=== PATIENT | female | born 1995 | race Hispanic/Latino ===

== ENCOUNTER → 2023-05-25 | Outpatient (CLI) | payer OTHER ==
[2023-05-25 15:19] LABS: BASOPHILS % (AUTO) 0.3 % (0.0-5.0); EOSINOPHILS % (AUTO) 2.7 % (0.0-8.0); HEMATOCRIT 35.9 % (36-48); LYMPHOCYTES % (AUTO) 17.7 % (21.0-51.0); MEAN CORPUSCULAR HEMOGLOBIN 31.8 pg (27.0-33.0); MEAN CORPUSCULAR HGB CONC 33.7 g/dL (32.0-36.0); MEAN CORPUSCULAR VOLUME 94.5 fL (79-99); MONOCYTES % (AUTO) 7.1 % (3.0-13.0); NEUTROPHILS % (AUTO) 71.9 % (40.0-77.0); PLATELET COUNT (AUTO) 154 K/uL (130-400); RED CELL DISTRIBUTION WIDTH 15.1 % (11.0-15.5)
[2023-05-25 15:44] LABS: AMPHET/METH SCREEN,URINE NEGATIVE (NEGATIVE); BARBITURATE SCREEN, URINE NEGATIVE (NEGATIVE); BENZODIAZEPINES SCREEN,URINE NEGATIVE (NEGATIVE); CANNABINOID SCREEN,URINE NEGATIVE (NEGATIVE); COCAINE SCREEN,URINE NEGATIVE (NEGATIVE); OPIATE SCREEN,URINE NEGATIVE (NEGATIVE); PHENCYCLIDINE SCREEN,URINE NEGATIVE (NEGATIVE)
[2023-05-26 13:04] LABS: RAPID PLASMA REAGIN NONREACTIVE (NONREACTIVE)
== END | disposition home or self-care (01) ==
LOC: LAB 14:22
PROVIDERS: ATTEND Obstetrics & Gynecology
DX: Z36.9 Encounter for antenatal screening, unspecified (principal); Z3A.36 36 weeks gestation of pregnancy
CPT/HCPCS: 36415; 80305; 85025; 86592; 86701; 87088; 87390

== ENCOUNTER 2023-06-21 18:49 | Inpatient (IN) | payer OTHER ==
[~2023-06-21] VITALS: Ht 152.4 cm; Wt 71.7 kg
[2023-06-21] MEDS ORDERED: PROMETHAZINE HCL 25 MG/ML 1ML AMPULE IM PRN (20:30)
[2023-06-21] MEDS ORDERED: NALOXONE HCL 0.4 MG/1 ML ML IV PRN (20:30)
[2023-06-21] MEDS ORDERED: ROPIVACAINE 0.2% 100ML VIAL 100 ML EP PRN (20:30)
[2023-06-21] MEDS ORDERED: DINOPROSTONE 10 MG VAGINAL SUPP VG SCH (20:30)
[2023-06-21] MEDS ORDERED: EPHEDRINE SULFATE 50 MG/ML AMPULE IVP PRN (20:30)
[2023-06-21] MEDS ORDERED: MEPERIDINE-PF 50 MG/ML SYG IVP PRN (20:30)
[2023-06-21] MEDS ORDERED: LACTATED RINGERS 500 ML 500 ML IV PRN (20:30)
[2023-06-21 21:16] LABS: HEMATOCRIT 35.9 % (36-48); MEAN CORPUSCULAR HEMOGLOBIN 31.6 pg (27.0-33.0); MEAN CORPUSCULAR HGB CONC 33.4 g/dL (32.0-36.0); MEAN CORPUSCULAR VOLUME 94.5 fL (79-99); RED BLOOD CELL COUNT(AUTO) 3.8 MIL/uL (4.00-5.50); RED CELL DISTRIBUTION WIDTH 15.4 % (11.0-15.5); WHITE BLOOD COUNT (AUTO) 6.5 K/uL (4.8-10.8)
[2023-06-21 21:27] LABS: APPEARANCE,URINE CLOUDY (CLEAR); BILIRUBIN,URINE NEGATIVE (NEGATIVE); COLOR,URINE LIGHT-YELLOW (YELLOW); GLUCOSE, URINE (UA) NEGATIVE (NEGATIVE); KETONES,URINE >=80 mg/dL (NEGATIVE); LEUKOCYTE ESTERASE ,URINE 25 Leu/uL (NEGATIVE); NITRATE,URINE NEGATIVE (NEGATIVE); OCCULT BLOOD,URINE NEGATIVE (NEGATIVE); PH,URINE 5.5 (5.0-8.0); PROTEIN,URINE NEGATIVE (NEGATIVE); UROBILINOGEN,URINE 0.2 mg/dL (0.2-1.0)
[2023-06-21 21:28] LABS: ADD UA MICROSCOPIC YES
[2023-06-21 21:30] LABS: MUCUS,URINE RARE LPF (None Seen); SQUAMOUS EPITHELIAL CELL,UR MOD /HPF (0-2)
[2023-06-21] MEDS: LACTATED RINGERS 1000ML 1,000 ML IV PRN (23:59)
[2023-06-22 01:14] VITALS: BP 102/55
[2023-06-22] MEDS: LACTATED RINGERS 1000ML 1,000 ML IV PRN (04:50)
[2023-06-22] MEDS ORDERED: OXYTOCIN-LR 30 UNITS/500ML 500 ML IV SCH (09:00)
[2023-06-22] MEDS ORDERED: METHYLERGONOVINE MALEATE 0.2 MG/1 ML ML ONE (17:01)
[2023-06-22] MEDS ORDERED: CEFAZOLIN SODIUM 1 GM VIAL ONE (17:06)
[2023-06-22] MEDS ORDERED: BENZOCAINE/LANOLIN/ALOE VERA 60 ML AEROSOL TP PRN (17:30)
[2023-06-22] MEDS ORDERED: DIPH,PERTUSS(ACELL),TET VAC/PF 0.5 ML VIAL IM PRN (17:30)
[2023-06-22] MEDS ORDERED: MEASLES/MUMPS/RUBELLA VACCINE, LIVE 0.5 ML/VIAL SQ PRN (17:30)
[2023-06-22] MEDS ORDERED: ACETAMINOPHEN 325 MG TAB PO PRN (17:30)
[2023-06-22] MEDS ORDERED: LANOLIN 30GM OINTMENT TP PRN (17:30)
[2023-06-22] MEDS ORDERED: WITCH HAZEL 1 PAD TP PRN (17:30)
[2023-06-22] MEDS ORDERED: ACETAMINOPHEN WITH CODEINE 1 TAB TAB PO PRN (17:30)
[2023-06-22 21:00] VITALS: BP 115/59; PULSE 83; RESP 18
[2023-06-22] MEDS ORDERED: PREN-196 PO (21:20)
[2023-06-22] MEDS: DOCUSATE SODIUM 100 MG CAP PO SCH (21:22)
[2023-06-22 23:37] VITALS: BP 114/65; PULSE 79; RESP 18
[2023-06-23] MEDS: IBUPROFEN 600 MG TABLET PO PRN ×2 (02:23→08:28)
[2023-06-23 04:07] VITALS: BP 111/59; PULSE 67; RESP 18
[2023-06-23 06:11] LABS: HEMATOCRIT 35.1 % (36-48); MEAN CORPUSCULAR HEMOGLOBIN 31.9 pg (27.0-33.0); MEAN CORPUSCULAR HGB CONC 33.3 g/dL (32.0-36.0); MEAN CORPUSCULAR VOLUME 95.6 fL (79-99); RED BLOOD CELL COUNT(AUTO) 3.67 MIL/uL (4.00-5.50); RED CELL DISTRIBUTION WIDTH 15.7 % (11.0-15.5); WHITE BLOOD COUNT (AUTO) 10.4 K/uL (4.8-10.8)
[2023-06-23 06:29] VITALS: BP 104/67; PULSE 70; RESP 20
[2023-06-23] MEDS: DOCUSATE SODIUM 100 MG CAP PO SCH (08:26)
[2023-06-23 12:53] VITALS: BP 115/58; PULSE 78; RESP 20
[2023-06-23 15:39] VITALS: BP 125/71; PULSE 89; RESP 20
[2023-06-23] MEDS ORDERED: IBUP-2077 PO (16:59)
== END 2023-06-23 19:10 | disposition home or self-care (01) | DRG 807 ==
LOC: LDH 18:49 → WSH 06-22 20:35
PROVIDERS: ADMIT Obstetrics & Gynecology; ATTEND Obstetrics & Gynecology
PROC: 10E0XZZ Delivery of Products of Conception, External Approach (ICD-10-PCS; principal; 2023-06-22)
PROC: 3E0R3BZ Introduction of Anesthetic Agent into Spinal Canal, Percutaneous Approach (ICD-10-PCS; 2023-06-22)
PROC: 00HU33Z Insertion of Infusion Device into Spinal Canal, Percutaneous Approach (ICD-10-PCS; 2023-06-22)
PROC: 10907ZC Drainage of Amniotic Fluid, Therapeutic from Products of Conception, Via Natural or Artificial Opening (ICD-10-PCS; 2023-06-22)
PROC: 0HQ9XZZ Repair Perineum Skin, External Approach (ICD-10-PCS; 2023-06-22)
PROC: 3E0P7VZ Introduction of Hormone into Female Reproductive, Via Natural or Artificial Opening (ICD-10-PCS; 2023-06-22)
PROC: 3E0134Z Introduction of Serum, Toxoid and Vaccine into Subcutaneous Tissue, Percutaneous Approach (ICD-10-PCS; 2023-06-22)
PROC: 3E0234Z Introduction of Serum, Toxoid and Vaccine into Muscle, Percutaneous Approach (ICD-10-PCS; 2023-06-22)
DX: O77.0 Labor and delivery complicated by meconium in amniotic fluid (principal); Z37.0 Single live birth; O70.0 First degree perineal laceration during delivery; Z3A.39 39 weeks gestation of pregnancy; Z23 Encounter for immunization; O43.123 Velamentous insertion of umbilical cord, third trimester
CPT/HCPCS: 36415; 81001; 85027; 86592; 86850; 86900; 86901; 87340; 88307; 90707; 90715; A4314; A4351; G0378; J0690; J2210; J2795; J7120